=== PATIENT | female | born 1950 | race Asian ===

== ENCOUNTER 2019-03-07 21:00 | Emergency (ER) | payer OTHER ==
[~2019-03-07] VITALS: Ht 160 cm; Wt 58.1 kg
[2019-03-07 21:48] LABS: PLATELET COUNT 264 K/uL (152-353)
[2019-03-07 22:00] LABS: POTASSIUM 3.3 mmol/L (3.6-5.2)
[2019-03-07 22:45] VITALS: BP 140/56; TEMP 97.7
[2019-03-08] MEDS ORDERED: BAYER ASPIRIN E81 MG PO (07:38)
[2019-03-08] MEDS ORDERED: BAYER CHEWABLE81 MG PO (07:39)
[2019-03-08] MEDS ORDERED: HALO10TA5 PO (07:41)
[2019-03-08] MEDS ORDERED: ATEN25TA21 PO (07:46)
[2019-03-08] MEDS ORDERED: RISP2TAB2 PO (07:49)
[2019-03-08] MEDS ORDERED: DIVA125C PO (07:51)
[2019-03-08] MEDS ORDERED: APAP325 MG PO (07:54)
[2019-03-20] MEDS ORDERED: MAGN400T4 PO (19:49)
[2019-03-20] MEDS ORDERED: RISP1TAB PO (19:49)
[2019-03-20] MEDS ORDERED: DIVA125C PO (19:50)
[2019-03-20] MEDS ORDERED: MAGNSUS68 PO (19:50)
[2019-03-20] MEDS ORDERED: HALO50IN4 IM (19:50)
[2019-03-20] MEDS ORDERED: HALO5TAB10 PO (19:51)
[2019-05-15] MEDS ORDERED: MAGN400T4 PO (16:47)
[2019-05-15] MEDS ORDERED: RISP1TAB PO (16:48)
[2019-05-16] MEDS ORDERED: ATEN25TA21 PO (00:02)
[2019-05-16] MEDS ORDERED: AMOX500T5 PO (00:04)
== END 2019-03-07 22:48 | disposition other institution (70) ==
LOC: ED 21:00
PROVIDERS: Emergency Medicine
DX: F28 Other psychotic disorder not due to a substance or known physiological condition (principal); F03.91 Unspecified dementia, unspecified severity, with behavioral disturbance; Z04.6 Encounter for general psychiatric examination, requested by authority
CPT/HCPCS: 80053; 85027; 99285